=== PATIENT | male | born 1995 | race Hispanic/Latino ===

== ENCOUNTER 2018-10-12 22:48 | Emergency (ER) | payer OTHER ==
[~2018-10-12] VITALS: Ht 177.8 cm; Wt 113.4 kg
[2018-10-12] MEDS ORDERED: IBUPROFEN 400 MG TAB PO ONE (23:15)
[2018-10-12 23:45] LABS: INFLUENZAE A&B ANTIGEN (RAPID) NEGATIVE (NEGATIVE); STREPTOCOCCUS GRP A ANTIGEN POSITIVE (NEGATIVE)
[2018-10-12] MEDS ORDERED: PENICILLIN G BENZATHINE LA 1.2 MU TBX IM STA (23:48)
[2018-10-13] MEDS ORDERED: ACETAMINOPHEN 325 MG TAB PO ONE
[2018-10-13 00:45] VITALS: BP 123/68
== END 2018-10-13 00:50 | disposition home or self-care (01) ==
LOC: ER 22:48
DX: R50.9 Fever, unspecified (principal); A54.5 Gonococcal pharyngitis
CPT/HCPCS: 83518; 87400; 96372; 99283; J0561